=== PATIENT | female | born 1990 | race Caucasian/White ===

== ENCOUNTER 2019-04-12 12:43 | Inpatient (IN) | payer MEDICAID ==
[~2019-04-12] VITALS: Ht 160 cm; Wt 137.4 kg
[~2019-04-12 12:43] MED LIST: CALC-686 PO; PREN-6 PO
[2019-04-12 13:04] VITALS: BMI 53.6
[2019-04-12 13:05] VITALS: BP 120/59; PULSE 93; RESP 20
[2019-04-12] MEDS: LACTATED RINGER'S 1,000 ML IV SCH ×3 (15:51→19:34)
[2019-04-12 17:12] VITALS: Ht 160 cm; Wt 137.4 kg
--- NOTE | 2019-04-12 18:48 | HP ---
Date/Time of Note Date/Time of Note DATE: 04/12/19 TIME: 18:46 OB - History Hx of Present Free Text/Dictation April 12, 2019 : 1 Para: 0 Other Concerns: 28-year-old G1, P0 with IUP at 28 weeks and 5 days presented with complaint of no movement. She denies any leaking of fluid, vaginal bleeding or contractions. Noted to have some occasional late and variable deceleration as well as borderline low amniotic fluid and for that reason patient was admitted for pro longed monitoring and observation and repeat FATMATA after hydration. Past Family/Social History * Past Medical, Surgical, Family and Obstetric Histories reviewed from chart. OB Admission Exam Vital Signs Vital Signs Vital Signs Date Temp Pulse Resp B/P (MAP) Pulse Ox O2 O2 Flow FiO2 Time Delivery Rate 04/12/19 98.1 93 20 120/59 98 Room Air 13:05 (79) Physical Exam HEENT: WNL Lungs: Clear Abdomen: WNL Extremities: Normal Cervical Dilatation: None OB Assessment/Plan Other Assessment: IUP at 28 weeks and 5 days No movement, rare episodes of late and random variable decelerations Borderline low amniotic fluid Patient was admitted for prolonged observation, hydration and repeat FATMATA tomorrow Obtain records since it was not available at the time of admission Patient was transferred to labor and delivery for observation and close monitoring SAIDA CARDOSO MD Apr 12, 2019 18:48
[2019-04-13] MEDS: LACTATED RINGER'S 1,000 ML IV SCH ×2 (04:04→11:59)
[2019-04-13] MEDS ORDERED: ACETAMINOPHEN 325 MG TAB PO PRN (10:30)
[2019-04-13] MEDS ORDERED: ONDANSETRON 4 MG INJ IV PRN (10:30)
[2019-04-13] MEDS ORDERED: AL HYDROX/MG HYDROX/SIMETH 30 ML CUP PO PRN (10:30)
--- NOTE | 2019-04-13 21:34 | PD.PPDC ---
HANDLE ASSEMBLER Discharge Instruction Diagnosis [id number] Final Diagnosis: [id number] IUP 28w5d DFM borderline oliohydramnios Condition [id number] Patient Condition: [id number] Stable Diet [id number] Diet: Twpog7a Resume Regular Diet Special Diet: drink water Activity/Restrictions [id number] Activity: [id number] Normal Activity Follow-up Follow-up with Physician: 2, Day/Days Provider Information: for f/u ISAIAS HERNANDEZ MD Apr 13, 2019 21:34
--- NOTE | 2019-04-13 21:38 | DS ---
Date/Time of Note Date/Time of Note DATE: 04/13/19 TIME: 21:34 Obstetrical Discharge Record Final Diagnosis Final Diagnosis: not delivered Other Final Diagnosis DFM borderline oligohydramnios Complications Augmentation: No Induction: No Rupture of Membranes: No Condition on Discharge Physical Assessment Last Vitals: patient was admitted for F/U FATMATA which was 7.5 by another laborist repeated o ne today was 7.8 aomehow patient was kept overnite which wasnt necessary will discharge patient and RTH in 2days for f/u FATMATA Abdomen and Incision: n/a Episiotomy: n/a Calf Tenderness: No Patient Condition: Stable ISAIAS ESPINO MD Apr 13, 2019 21:38
[2019-04-14] MEDS ORDERED: PRENATAL VITAMIN PO SCH (09:00)
== END 2019-04-13 16:20 | disposition home or self-care (01) | DRG 832 ==
LOC: OBT 12:43 → L-D 12:45 → OBT 15:12 → L-D 15:12
PROVIDERS: ADMIT Obstetrics & Gynecology; ATTEND Obstetrics & Gynecology
DX: O36.8130 Decreased fetal movements, third trimester, not applicable or unspecified (principal); O41.03X0 Oligohydramnios, third trimester, not applicable or unspecified; Z3A.28 28 weeks gestation of pregnancy
CPT/HCPCS: 76818; G0463; J7120

== ENCOUNTER 2019-04-16 10:47 | Outpatient (CLI) | payer MEDICAID ==
[~2019-04-16] VITALS: Ht 160 cm; Wt 137.5 kg
[2019-04-16 12:36] VITALS: Ht 160 cm; Wt 137.5 kg
[2019-04-16 12:37] VITALS: BP 120/63; PULSE 88; RESP 18
--- NOTE | 2019-04-16 14:13 | PREOPHP ---
DATE OF ADMISSION: 04/16/2019 HISTORY OF PRESENT ILLNESS: Ms. Lilly Yancey is a 28-year-old 1, para 0, EDC 06/30, intrauterine at 30 weeks gestational age, presented to triage for repeat amniotic fl uid index secondary to history of low FATMATA. She reports good movement. She denies any contract ions, vaginal bleeding, or discharge. Her care took place at [facility]. PAST MEDICAL HISTORY: Obese. MEDICATIONS: vitamins. PAST SURGICAL HISTORY: None. GYNECOLOGIC HISTORY: 14, regular 3 to 4 days. Denies any sexually transmitted infections. Sexually active with 1 partner. SOCIAL HISTORY: Denies any smoking, drugs or alcohol. FAMILY HISTORY: None. REVIEW OF SYSTEMS: All within normal except history of present illness. PHYSICAL EXAMINATION: HEENT: Within normal. LUNGS: CTA bilateral. CARDIOVASCULAR: S1, S2, regular rhythm. ABDOMEN: Gravid, nontender. Negative CVA bilateral. EXTREMITIES: Negative. No calf tenderness. PELVIC: Vaginal exam deferred. ASSESSMENT: Intrauterine at 30 weeks gestational age with a history of low amniotic fluid index. PLAN: Biophysical profile. Consider discharge home if labs are within normal. Dictated By: AMELIA MCGOVERN/TAE Conf#: [id number] DID#: [id number]
--- NOTE | 2019-04-16 14:57 | TRIAGE ---
OB Triage Datetime Report Generated by CPN: 04/16/2019 14:57 Datetime: 04/16/2019 13:57 Pattern: Normal: <= 5 Contractions in 10 Minutes Resting Tone [place]: Relaxed Contraction Comments: no uc Heart Rate FHR Baseline Rate: 135 Monitor Mode: External US Variability: Moderate 6-25 bpm Accelerations: 10X10 Decelerations: None Category: Category I Pain Presence: None/Denies Pain Type: N/A Datetime: 04/16/2019 13:01 Pattern: Normal: <= 5 Contractions in 10 Minutes Resting Tone [place]: Relaxed Contraction Comments: no uc Heart Rate FHR Baseline Rate: 145 Monitor Mode: External US Variability: Moderate 6-25 bpm Category: Category I Datetime: 04/16/2019 12:40 Assessment Type: Triage Maternal Assessment Level of Consciousness: Keenly Alert, Responsive DTR's/Clonus: DTRs 2+; No Clonus Headache: Denies Blurred Vision: No Respiratory Effort: Unlabored; Regular Rhythm; Equal Expansion Breath Sounds, Left: Clear and Equal Breath Sounds, Right: Clear and Equal Nausea/Vomiting: Denies RUQ Epigastric Pain: Denies Lower Extremities Edema: None Degree: None Upper Extremities Edema: None Facial Edema: None Fall Risk Assessment History of Falling: (0) No Secondary Diagnosis: (0) No Ambulatory Aid: (0) Bedrest/Nurse Assist IV Therapy: (0) No Gait: (0) Normal/Bedrest/Immobile Mental Status: (0) Oriented to Own Ability Fall Score: 0 Fall Risk Score Definition: No Risk: No action required Datetime: 04/16/2019 12:39 Time of Arrival: 04/16/2019 10:37 EGA: 29.2 Arrived By: Ambulatory Arrived From: Home Chief Complaint: follow up nst, bpp due to marquita 7.8 on 04/12/19 Movement: Present Contractions: Denies/Absent Rupture of Membranes: Denies Vaginal Bleeding: None Vaginal Discharge: Denies Recent Sexual Intercouse: Denies Abdominal Trauma: Not Applicable Patient Complaints: None Time Provider Notified: 04/16/2019 12:27 Provider Notified: Initial Plan: nst, bpp Datetime: 04/13/2019 16:00 Pain Presence: None/Denies Pain Type: N/A Datetime: 04/13/2019 15:00 Pain Presence: None/Denies Pain Type: N/A Datetime: 04/13/2019 14:00 Pain Presence: None/Denies Pain Type: N/A Datetime: 04/13/2019 13:22 Temperature Route: Oral Datetime: 04/13/2019 13:00 Pain Presence: None/Denies Pain Type: N/A Datetime: 04/13/2019 12:00 Pain Presence: None/Denies Pain Type: N/A Datetime: 04/13/2019 11:00 Pain Presence: None/Denies Pain Type: N/A Datetime: 04/13/2019 10:00 Pain Presence: None/Denies Pain Type: N/A Datetime: 04/13/2019 09:46 Monitor Mode: External Resting Tone [place]: Relaxed Heart Rate FHR Baseline Rate: 130 Monitor Mode: External US FHR Baseline Changes: No Baseline Change Variability: Moderate 6-25 bpm Accelerations: 15X15 Decelerations: None Category: Category I Comments: NST DONE Datetime: 04/13/2019 09:14 Comments: NST started Datetime: 04/13/2019 08:02 Assessment Type: Ongoing Assessment Maternal Assessment Level of Consciousness: Keenly Alert, Responsive DTR's/Clonus: DTRs 2+; No Clonus Headache: Denies Blurred Vision: No Respiratory Effort: Unlabored; Regular Rhythm; Equal Expansion Breath Sounds, Left: Clear and Equal Breath Sounds, Right: Clear and Equal Nausea/Vomiting: Denies RUQ Epigastric Pain: Denies Lower Extremities Edema: None Degree: None Upper Extremities Edema: None Degree: None Facial Edema: None Fall Risk Assessment History of Falling: (0) No Secondary Diagnosis: (0) No Ambulatory Aid: (0) Bedrest/Nurse Assist IV Therapy: (20) Yes Gait: (0) Normal/Bedrest/Immobile Mental Status: (0) Oriented to Own Ability Fall Score: 20 Fall Risk Score Definition: No Risk: No action required Datetime: 04/13/2019 08:00 Stage of : Antepartum Temperature Route: Oral Pain Assessment Pain Scale: 0 Pain Presence: None/Denies Pain Type: N/A Datetime: 04/12/2019 23:30 Stage of : Antepartum Labor Evaluation Frequency: NONE Monitor Mode: External Heart Rate FHR Baseline Rate: 135 Monitor Mode: External US Variability: Moderate 6-25 bpm Accelerations: 15X15 Decelerations: None Category: Category I Comments: NST COMPLETED AT THIS TIME. Datetime: 04/12/2019 22:55 Comments: NST STARTING NOW Datetime: 04/12/2019 20:35 Vaginal Exam Membrane Status: Intact Datetime: 04/12/2019 20:30 Assessment Type: Ongoing Assessment Maternal Assessment Level of Consciousness: Keenly Alert, Responsive DTR's/Clonus: DTRs 2+; No Clonus Headache: Denies Blurred Vision: No Respiratory Effort: Unlabored; Regular Rhythm; Equal Expansion Breath Sounds, Left: Clear and Equal Breath Sounds, Right: Clear and Equal Nausea/Vomiting: Denies RUQ Epigastric Pain: Denies Lower Extremities Edema: None Degree: None Upper Extremities Edema: None Degree: None Facial Edema: None Fall Risk Assessment History of Falling: (0) No Secondary Diagnosis: (0) No Ambulatory Aid: (0) Bedrest/Nurse Assist IV Therapy: (0) No Gait: (0) Normal/Bedrest/Immobile Mental Status: (0) Oriented to Own Ability Fall Score: 0 Fall Risk Score Definition: No Risk: No action required Datetime: 04/12/2019 19:16 Assessment Type: Ongoing Assessment Datetime: 04/12/2019 19:07 Labor Evaluation Frequency: 0 Resting Tone [place]: Relaxed Heart Rate FHR Baseline Rate: 125 Variability: Moderate 6-25 bpm Accelerations: 15X15 Decelerations: None Category: Category I Datetime: 04/12/2019 18:00 Labor Evaluation Frequency: OCCATIONAL Duration (sec)2399: 60 Heart Rate FHR Baseline Rate: 135 Monitor Mode: External US Variability: Moderate 6-25 bpm Accelerations: 15X15 Decelerations: Variable Category: Category I Pain Assessment Pain Scale: 0 Pain Goal: 0 Datetime: 04/12/2019 16:56 Assessment Type: Admission Assessment Vaginal Bleeding: None Maternal Assessment Level of Consciousness: Keenly Alert, Responsive DTR's/Clonus: DTRs 2+; No Clonus Headache: Denies Blurred Vision: No Respiratory Effort: Unlabored; Regular Rhythm; Equal Expansion Breath Sounds, Left: Clear and Equal Breath Sounds, Right: Clear and Equal Nausea/Vomiting: Denies RUQ Epigastric Pain: Denies Lower Extremities Edema: None Degree: None Upper Extremities Edema: None Degree: None Facial Edema: None Fall Risk Assessment History of Falling: (0) No Secondary Diagnosis: (0) No Ambulatory Aid: (0) Bedrest/Nurse Assist IV Therapy: (0) No Gait: (0) Normal/Bedrest/Immobile Mental Status: (0) Oriented to Own Ability Fall Score: 0 Fall Risk Score Definition: No Risk: No action required Pain Assessment Pain Scale: 0 Pain Presence: None/Denies Pain Type: N/A Pain Goal: 0 Datetime: 04/12/2019 15:41 Heart Rate FHR Baseline Rate: 140 Monitor Mode: External US Variability: Moderate 6-25 bpm Accelerations: 15X15 Decelerations: Variable Comments: appropriate for gestational age Datetime: 04/12/2019 13:41 Labor Evaluation Frequency: none Resting Tone [place]: Relaxed Heart Rate FHR Baseline Rate: 140 Variability: Moderate 6-25 bpm Accelerations: 10X10 Comments: approprtiate for gestational age Datetime: 04/12/2019 12:52 Stage of : OB Triage Assessment Type: Triage Maternal Assessment Level of Consciousness: Keenly Alert, Responsive DTR's/Clonus: DTRs 2+; No Clonus Headache: Denies Blurred Vision: No Respiratory Effort: Unlabored; Regular Rhythm; Equal Expansion Breath Sounds, Left: Clear and Equal Breath Sounds, Right: Clear and Equal Nausea/Vomiting: Denies RUQ Epigastric Pain: Denies Lower Extremities Edema: None Degree: None Upper Extremities Edema: None Degree: None Facial Edema: None Temperature Route: Axillary Fall Risk Assessment History of Falling: (0) No Secondary Diagnosis: (0) No Ambulatory Aid: (0) Bedrest/Nurse Assist IV Therapy: (0) No Gait: (0) Normal/Bedrest/Immobile Mental Status: (0) Oriented to Own Ability Fall Score: 0 Fall Risk Score Definition: No Risk: No action required Datetime: 04/12/2019 12:51 Time of Arrival: 04/12/2019 15:12 EGA: 28.5 Arrived By: Ambulatory Arrived From: Home Chief Complaint: no FM today Movement: Decreased Contractions: Denies/Absent Vaginal Bleeding: None Patient Complaints: None Time Provider Notified: 04/12/2019 14:05 Provider Notified: Nehemias Initial Plan: US and monitor
== END 2019-04-16 15:00 | disposition home or self-care (01) ==
LOC: OBT 10:47 → L-D 10:48 → OBT 15:00
PROVIDERS: ATTEND Obstetrics & Gynecology
DX: O41.93X0 Disorder of amniotic fluid and membranes, unspecified, third trimester, not applicable or unspecified (principal); Z3A.30 30 weeks gestation of pregnancy
CPT/HCPCS: 76818; Z7500; G0463

== ENCOUNTER 2019-04-20 09:02 | Outpatient (CLI) | payer MEDICAID ==
[~2019-04-20] VITALS: Ht 160 cm; Wt 138.6 kg
[2019-04-20 09:43] VITALS: BP 125/58; PULSE 91; RESP 18; Ht 160 cm; Wt 138.6 kg
--- NOTE | 2019-04-20 12:46 | TRIAGE ---
OB Triage Datetime Report Generated by CPN: 04/20/2019 12:46 Datetime: 04/20/2019 11:44 Stage of : OB Triage Datetime: 04/20/2019 11:21 Labor Evaluation Frequency: 0 Monitor Mode: External Pattern: Normal: <= 5 Contractions in 10 Minutes Resting Tone [place]: Relaxed Heart Rate FHR Baseline Rate: 135 Monitor Mode: External US Variability: Moderate 6-25 bpm Accelerations: 10X10 Decelerations: None Category: Category I Pain Assessment Pain Scale: 0 Pain Presence: None/Denies Pain Type: N/A Pain Goal: 3 Pain Relief Measures: Comfort Measures Datetime: 04/20/2019 10:16 Labor Evaluation Frequency: 0 Monitor Mode: External Pattern: Normal: <= 5 Contractions in 10 Minutes Resting Tone [place]: Relaxed Heart Rate FHR Baseline Rate: 140 Monitor Mode: External US Variability: Moderate 6-25 bpm Accelerations: 10X10 Decelerations: None Category: Category I Pain Assessment Pain Scale: 0 Pain Presence: None/Denies Pain Type: N/A Pain Goal: 3 Pain Relief Measures: Comfort Measures Datetime: 04/20/2019 09:46 Stage of : OB Triage Datetime: 04/20/2019 09:29 Stage of : OB Triage Assessment Type: Triage Maternal Assessment Level of Consciousness: Keenly Alert, Responsive DTR's/Clonus: DTRs 2+; No Clonus Headache: Denies Blurred Vision: No Respiratory Effort: Unlabored; Regular Rhythm; Equal Expansion Breath Sounds, Left: Clear and Equal Breath Sounds, Right: Clear and Equal Nausea/Vomiting: Denies RUQ Epigastric Pain: Denies Facial Edema: None Temperature Route: Axillary Fall Risk Assessment History of Falling: (0) No Secondary Diagnosis: (0) No Ambulatory Aid: (0) Bedrest/Nurse Assist IV Therapy: (0) No Gait: (0) Normal/Bedrest/Immobile Mental Status: (0) Oriented to Own Ability Fall Score: 0 Fall Risk Score Definition: No Risk: No action required Labor Evaluation Frequency: 0 Monitor Mode: External Pattern: Normal: <= 5 Contractions in 10 Minutes Resting Tone [place]: Relaxed Heart Rate FHR Baseline Rate: 135 Monitor Mode: External US Variability: Moderate 6-25 bpm Accelerations: 10X10 Decelerations: None Category: Category I Pain Assessment Pain Scale: 0 Pain Presence: None/Denies Pain Type: N/A Pain Goal: 3 Pain Relief Measures: Comfort Measures Datetime: 04/20/2019 09:28 Time of Arrival: 04/20/2019 08:51 EGA: 29.5 Arrived By: Ambulatory Arrived From: Home Chief Complaint: F/U LOW FATMATA, DENIES LEAKING, BLEEDING OR UC'S Movement: Present Contractions: Denies/Absent Rupture of Membranes: Denies Vaginal Bleeding: None Vaginal Discharge: Denies Recent Sexual Intercouse: Denies Abdominal Trauma: Not Applicable Patient Complaints: None Time Provider Notified: 04/20/2019 09:46 Provider Notified: SRINIVAS Initial Plan: MONITOR, BPP, Datetime: 04/16/2019 12:40 Fall Score: 0 Fall Risk Score Definition: No Risk: No action required Datetime: 04/16/2019 12:39 EGA: 29.1 Datetime: 04/13/2019 08:02 Fall Score: 20 Fall Risk Score Definition: No Risk: No action required Datetime: 04/12/2019 20:30 Fall Score: 0 Fall Risk Score Definition: No Risk: No action required Datetime: 04/12/2019 16:56 Fall Score: 0 Fall Risk Score Definition: No Risk: No action required Datetime: 04/12/2019 12:52 Fall Score: 0 Fall Risk Score Definition: No Risk: No action required Datetime: 04/12/2019 12:51 EGA: 28.4
--- NOTE | 2019-04-20 16:59 | PN ---
Triage Information Date/Time .1653 Reason for visit: Oligohydramnios (f/u for oligohdramnious) Weeks of Gestation 29w5d /Para Diabetes: none Hypertention: none Objective Vital Signs Date Temp Pulse Resp B/P (MAP) Pulse Ox O2 O2 Flow FiO2 Time Delivery Rate 04/20/19 98.8 91 18 125/58 09:43 (80) Heart Rate: 150's Heart Rate Comments CAT I Contractions: None Results/Medications Imaging Results FATMATA 7.8 Disposition: Discharge Assessment/Plan A IUP 29w5d borderline oligohydramnios P RTH in 2days for F/U after increase fluid intake ISAIAS ESPINO MD Apr 20, 2019 16:59
== END 2019-04-20 12:01 | disposition home or self-care (01) ==
LOC: OBT 09:02 → L-D 09:03 → OBT 12:01
PROVIDERS: ATTEND Obstetrics & Gynecology
DX: O41.03X0 Oligohydramnios, third trimester, not applicable or unspecified (principal); Z3A.29 29 weeks gestation of pregnancy
CPT/HCPCS: 76818; Z7500; G0463

== ENCOUNTER 2019-04-22 13:02 | Outpatient (CLI) | payer MEDICAID ==
[~2019-04-22] VITALS: Ht 160 cm; Wt 139.2 kg
[2019-04-22 13:19] VITALS: Ht 160 cm; Wt 139.2 kg
[2019-04-22 13:20] VITALS: BP 123/57; PULSE 96; RESP 18
== END 2019-04-22 14:50 | disposition home or self-care (01) ==
LOC: L-D 13:02 → OBT 13:02
PROVIDERS: ATTEND Obstetrics & Gynecology
DX: O41.93X0 Disorder of amniotic fluid and membranes, unspecified, third trimester, not applicable or unspecified (principal); Z3A.29 29 weeks gestation of pregnancy
CPT/HCPCS: 76818; Z7500; G0463

== ENCOUNTER 2019-04-26 19:58 | Outpatient (CLI) | payer MEDICAID ==
[~2019-04-26] VITALS: Ht 160 cm; Wt 138.5 kg
[2019-04-26 20:31] VITALS: Ht 160 cm; Wt 138.5 kg
== END 2019-04-27 00:15 | disposition home or self-care (01) ==
LOC: OBT 19:58 → L-D 19:59 → OBT 04-27 00:15
PROVIDERS: ATTEND Obstetrics & Gynecology
DX: O41.03X0 Oligohydramnios, third trimester, not applicable or unspecified (principal); Z3A.30 30 weeks gestation of pregnancy
CPT/HCPCS: 76818; Z7500; G0463

== ENCOUNTER 2019-04-30 07:31 | Inpatient (IN) | payer MEDICAID ==
[~2019-04-30] VITALS: Ht 160 cm; Wt 139.5 kg
[2019-04-30 08:22] VITALS: BP 135/74; PULSE 90; RESP 18; Ht 160 cm; Wt 139.5 kg
[2019-04-30] MEDS: LACTATED RINGER'S 1,000 ML IV SCH ×2 (10:32→16:42)
[2019-05-01] MEDS: LACTATED RINGER'S 1,000 ML IV SCH ×2 (00:42→08:47)
[2019-05-01] MEDS ORDERED: PRENATAL VITAMIN PO SCH (09:00)
== END 2019-05-01 12:42 | disposition home or self-care (01) | DRG 833 ==
LOC: OBT 07:31 → L-D 07:33 → OBT 09:40 → L-D 09:40
PROVIDERS: ADMIT Obstetrics & Gynecology; ATTEND Obstetrics & Gynecology
DX: O41.03X0 Oligohydramnios, third trimester, not applicable or unspecified (principal); Z3A.00 Weeks of gestation of pregnancy not specified
CPT/HCPCS: 76816; 76817; 76818; 84112; G0463; J7120

== ENCOUNTER 2019-05-04 16:14 | Outpatient (CLI) | payer MEDICAID ==
[~2019-05-04] VITALS: Ht 160 cm; Wt 139.4 kg
[2019-05-04 16:37] VITALS: BP 123/66; PULSE 99; Ht 160 cm; Wt 139.4 kg
== END 2019-05-04 18:50 | disposition home or self-care (01) ==
LOC: OBT 16:14 → L-D 16:15 → OBT 18:50
PROVIDERS: ATTEND Obstetrics & Gynecology
DX: O41.03X0 Oligohydramnios, third trimester, not applicable or unspecified (principal); Z3A.31 31 weeks gestation of pregnancy
CPT/HCPCS: 76815; G0463

== ENCOUNTER 2019-05-06 14:47 | Outpatient (CLI) | payer MEDICAID ==
[~2019-05-06] VITALS: Ht 160 cm; Wt 138.3 kg
[2019-05-06 14:54] VITALS: BP 120/56; PULSE 105; RESP 18; Ht 160 cm; Wt 138.3 kg
== END 2019-05-06 16:53 | disposition home or self-care (01) ==
LOC: L-D 14:47 → OBT 14:47
PROVIDERS: ATTEND Obstetrics & Gynecology
DX: O41.93X0 Disorder of amniotic fluid and membranes, unspecified, third trimester, not applicable or unspecified (principal); Z3A.32 32 weeks gestation of pregnancy
CPT/HCPCS: 76818; Z7500; G0463

== ENCOUNTER 2019-05-08 16:42 | Outpatient (CLI) | payer MEDICAID ==
[~2019-05-08] VITALS: Ht 160 cm; Wt 137.7 kg
[2019-05-08 19:45] VITALS: BP 130/70; PULSE 93; RESP 18; Ht 160 cm; Wt 137.7 kg
== END 2019-05-08 20:56 | disposition home or self-care (01) ==
LOC: L-D 16:42 → OBT 16:42 → L-D 19:39 → OBT 20:56
PROVIDERS: ATTEND Obstetrics & Gynecology
DX: O41.03X0 Oligohydramnios, third trimester, not applicable or unspecified (principal); Z3A.32 32 weeks gestation of pregnancy
CPT/HCPCS: 76818; Z7500; G0463

== ENCOUNTER 2019-05-14 15:12 | Inpatient (IN) | payer MEDICAID ==
[~2019-05-14] VITALS: Ht 160 cm; Wt 139.0 kg
[2019-05-14 15:31] VITALS: BP 112/61; PULSE 93; RESP 18; Ht 160 cm; Wt 139.0 kg
[2019-05-14] MEDS ORDERED: LACTATED RINGER'S 1,000 ML IV ONE (17:30)
[2019-05-14] MEDS: LACTATED RINGER'S 1,000 ML IV SCH (18:15)
[2019-05-15] MEDS: LACTATED RINGER'S 1,000 ML IV SCH ×3 (01:07→08:59)
== END 2019-05-15 19:42 | disposition home or self-care (01) | DRG 833 ==
LOC: OBT 15:12 → L-D 15:13 → OBT 17:05 → L-D 17:05
PROVIDERS: ADMIT Obstetrics & Gynecology; ATTEND Obstetrics & Gynecology
DX: O41.03X0 Oligohydramnios, third trimester, not applicable or unspecified (principal); Z3A.33 33 weeks gestation of pregnancy
CPT/HCPCS: 76815; 76818; 84112; G0463; J7120